=== PATIENT | male | born 1990 | race Caucasian/White ===

== ENCOUNTER 2017-11-22 12:42 | Day surgery (SDC) | payer MEDICAID ==
[2017-11-22] VITALS (12 sets, daily range): BP systolic 112–138; BP diastolic 54–86
[~2017-11-22] VITALS: Ht 195.6 cm; Wt 87.7 kg
[~2017-11-22 12:42] MED LIST: HYDR-3964 PO; ONDA4TAB12 PO; acetaminophen 325mg tablet PO ONE; cefazolin/dext.iso 2gm/50ml 50 ML IV ONE; celeCOXIB 100mg capsule PO ONE; famotidine 20mg tablet PO ONE; gabapentin 300mg capsule PO ONE; metoclopramide 5 mg/ml inj IV ONE; oxyCODONE SR 10mg (sust. release) tab PO ONE; ringers solution, lacted 1,000 ML IV SCH
[2017-11-22] MEDS ORDERED: metoclopramide 10mg tablet PO ONE (13:15)
[2017-11-22] MEDS ORDERED: BUPIVAcaine/PF 2.5 mg/ml (0.25%) 30ml vial ONE (15:50)
[2017-11-22] MEDS ORDERED: desflurane 240ml liquid inh. IH ONE (16:00)
[2017-11-22] MEDS ORDERED: ringers solution, lacted 1,000 ML IV SCH (16:01)
[2017-11-22] MEDS ORDERED: acetaminophen 1,000mg/100ml IV 100 ML IV PRN (16:05)
[2017-11-22] MEDS ORDERED: proCHLORperazine 10 MG/2 ml inj IV PRN (16:05)
[2017-11-22] MEDS ORDERED: meperidine/PF 50mg/ml syringe IV PRN ×3 (16:05)
[2017-11-22] MEDS ORDERED: morphine 2 MG/ML inj. syringe IV PRN ×2 (16:05)
[2017-11-22] MEDS ORDERED: ondansetron/PF 4mg/2ml inj IV PRN (16:05)
[2017-11-22] MEDS ORDERED: LIDOcaine 2% 5ml jelly ONE (16:11)
[2017-11-22] MEDS ORDERED: midazolam 2 mg/2 ml injection ONE (16:11)
[2017-11-22] MEDS ORDERED: fentaNYL /PF 50mcg/ml 5ml ampule ONE (16:11)
[2017-11-22] MEDS ORDERED: ondansetron/PF 4mg/2ml inj ONE (16:33)
[2017-11-22] MEDS ORDERED: dexamethasone sod phosphate 4mg/ml inj. ONE (16:33)
[2017-11-22] MEDS ORDERED: LIDOcaine 2% (20mg/ml) 5ml vial ONE (17:15)
[2017-11-22] MEDS ORDERED: propofol inj 20 ML IV ONE (17:15)
[2017-11-22] MEDS ORDERED: rocuronium 10mg/ml inj IV ONE (17:16)
== END 2017-11-22 19:40 | disposition home or self-care (01) ==
LOC: PAS 12:42
PROVIDERS: ATTEND Orthopaedic Surgery
DX: S42.022A Displaced fracture of shaft of left clavicle, initial encounter for closed fracture (principal); E11.9 Type 2 diabetes mellitus without complications; Z86.73 Personal history of transient ischemic attack (TIA), and cerebral infarction without residual deficits; Z86.74 Personal history of sudden cardiac arrest; Z72.89 Other problems related to lifestyle; Z79.01 Long term (current) use of anticoagulants; Z79.899 Other long term (current) drug therapy; Z98.890 Other specified postprocedural states; X58.XXXA Exposure to other specified factors, initial encounter; Y93.89 Activity, other specified; Y92.89 Other specified places as the place of occurrence of the external cause; Y99.8 Other external cause status
CPT/HCPCS: 23515; 73000; 76001; A4565; A6449; C1713; J0690; J1100; J2001; J2175; J2250; J2405; J2704; J3010; J3490; J7120; J8597; A7000

== ENCOUNTER 2018-01-10 11:36 | Inpatient (IN) | payer MEDICAID ==
[~2018-01-10] VITALS: Ht 195.6 cm; Wt 88.0 kg
[2018-01-10] VITALS (13 sets, daily range): BP systolic 104–129; BP diastolic 50–79
[~2018-01-10 11:36] MED LIST changes: -acetaminophen 325mg tablet PO ONE; -cefazolin/dext.iso 2gm/50ml 50 ML IV ONE; -celeCOXIB 100mg capsule PO ONE; -famotidine 20mg tablet PO ONE; -gabapentin 300mg capsule PO ONE; -metoclopramide 5 mg/ml inj IV ONE; -oxyCODONE SR 10mg (sust. release) tab PO ONE; -ringers solution, lacted 1,000 ML IV SCH
[2018-01-10] MEDS ORDERED: diphenhydrAMINE 25mg capsule PO PRN ×2 (16:25)
[2018-01-10] MEDS ORDERED: bisacodyl 10mg suppository rectal RC PRN (16:25)
[2018-01-10] MEDS ORDERED: morphine 4 MG/ML inj SYRINge IV PRN ×3 (16:25→17:45)
[2018-01-10] MEDS ORDERED: acetaminophen 325mg tablet PO PRN (16:25)
[2018-01-10] MEDS ORDERED: magnesium hydroxide 30ml (MOM) UD suspension PO PRN (16:25)
[2018-01-10] MEDS ORDERED: HYDROcodone/acetaminophen 10/325mg tab PO PRN ×2 (16:25)
[2018-01-10] MEDS ORDERED: ondansetron/PF 4mg/2ml inj IV PRN ×2 (16:25→17:45)
[2018-01-10] MEDS ORDERED: BUPIVAcaine/PF 2.5 mg/ml (0.25%) 30ml vial ONE (17:14)
[2018-01-10] MEDS ORDERED: ringers solution, lacted 1,000 ML IV SCH (17:42)
[2018-01-10] MEDS ORDERED: proCHLORperazine 10 MG/2 ml inj IV PRN (17:45)
[2018-01-10] MEDS ORDERED: meperidine/PF 50mg/ml syringe IV PRN ×2 (17:45)
[2018-01-10] MEDS ORDERED: midazolam 2 mg/2 ml injection ONE (17:51)
[2018-01-10] MEDS ORDERED: rocuronium 10mg/ml inj IV ONE (17:51)
[2018-01-10] MEDS ORDERED: propofol inj 20 ML IV ONE (17:51)
[2018-01-10] MEDS ORDERED: LIDOcaine 2% (20mg/ml) 5ml vial ONE (17:51)
[2018-01-10] MEDS ORDERED: fentaNYL/PF 50MCG/1 ML 2ML syringe ONE (17:51)
[2018-01-10] MEDS ORDERED: LIDOcaine 2% 5ml jelly ONE (17:51)
[2018-01-10] MEDS ORDERED: vancomycin 1,000mg inj ONE (18:35)
[2018-01-10] MEDS ORDERED: ondansetron/PF 4mg/2ml inj ONE (18:37)
[2018-01-10] MEDS ORDERED: dexamethasone sod phosphate 4mg/ml inj. ONE (18:37)
[2018-01-10] MEDS ORDERED: morphine 10mg/ml inj. ONE (18:45)
[2018-01-10] MEDS: ketorolac tromethamine 15mg/ml inj. IV SCH (19:31)
[2018-01-10] MEDS: meperidine/PF 50mg/ml syringe IV PRN ×2 (19:31→19:35)
[2018-01-10] MEDS ORDERED: BUPIVAcaine 0.5% inj/PF 30 ml vial ONE (19:43)
[2018-01-10] MEDS: ascorbic acid 500mg tablet PO SCH (22:46)
[2018-01-10] MEDS: gabapentin 300mg capsule PO SCH (22:46)
[2018-01-10] MEDS: sennosides 8.6mg tablet PO SCH (22:47)
[2018-01-11] MEDS: potassium cl 20mEq in 1/2 NS 1,000 ML IV SCH ×4 (00:22→16:22)
[2018-01-11] MEDS: ceFAZolin 1GM/D5W- ADD-VANTAGE 50 ML IV SCH ×3 (00:24→15:32)
[2018-01-11 02:00] VITALS: BP 111/30
[2018-01-11] MEDS: ketorolac tromethamine 15mg/ml inj. IV SCH ×3 (02:44→13:06)
[2018-01-11 05:00] VITALS: BP 107/52
[2018-01-11 06:05] LABS: BASOPHILS % (AUTO) 0.1 % (0-1); EOSINOPHILS # (AUTO) 0.1 X10'3 (0-0.9); EOSINOPHILS % (AUTO) 0.7 % (0-6); HEMOGLOBIN 12.7 g/dl (14.0-17.9); LYMPHOCYTES # (AUTO) 0.8 X10'3 (1.1-4.8); LYMPHOCYTES % (AUTO) 8.3 % (21-51); MEAN CORPUSCULAR HEMOGLOBIN 30.5 PG (27.0-31.0); MEAN CORPUSCULAR HGB CONC 34.3 % (33.0-36.5); MEAN PLATELET VOLUME 9.2 FL (7.4-10.4); MONOCYTES # (AUTO) 0.2 X10'3 (0-0.9); MONOCYTES % (AUTO) 2.5 % (2-12); NEUTROPHILS # (AUTO) 8.4 X10'3 (1.8-7.7); NEUTROPHILS % (AUTO) 88.4 % (42-75); PLATELET COUNT 263 X10'3 (140-440); RED BLOOD COUNT 4.15 X10'6 (4.70-6.10); RED CELL DISTRIBUTION WIDTH 14.4 % (11.5-14.5); WHITE BLOOD COUNT 9.5 X10'3 (4.5-11.0)
[2018-01-11 06:42] LABS: ANION GAP 11 (8-16); CHLORIDE 104 MMOL/L (99-107); POTASSIUM 4.3 MMOL/L (3.5-5.1); SODIUM 139 MMOL/L (135-145); TOTAL CARBON DIOXIDE 23.7 MMOL/L (24-32)
[2018-01-11] MEDS: gabapentin 300mg capsule PO SCH ×3 (07:04→20:55)
[2018-01-11] MEDS: multivitamins, therapeutics tablet PO SCH (07:04)
[2018-01-11] MEDS: ascorbic acid 500mg tablet PO SCH ×2 (07:04→20:55)
[2018-01-11] MEDS ORDERED: vancomycin/NS 1 GM ADD-VANTAGE 250 ML IV SCH (08:00)
[2018-01-11 10:00] VITALS: BP 105/56
[2018-01-11 10:51] LABS: ALANINE AMINOTRANSFERASE 17 U/L (12-78); ALBUMIN 3.5 G/DL (3.4-5.0); ALBUMIN/GLOBULIN RATIO 0.9 (1.1-1.5); ALKALINE PHOSPHATASE 118 IU/L (46-116); ANION GAP 9 (8-16); ASPARTATE AMINO TRANSFERASE 13 U/L (10-37); BILIRUBIN,TOTAL 0.6 MG/DL (0.1-1.0); BLOOD UREA NITROGEN 11 MG/DL (7-18); BUN/CREATININE RATIO 14.1 (5.4-32.0); CALCIUM 9.2 MG/DL (8.5-10.1); CHLORIDE 104 MMOL/L (99-107); CREATININE 0.78 MG/DL (0.60-1.10); GLUCOSE 110 MG/DL (70-104); POTASSIUM 4.5 MMOL/L (3.5-5.1); SODIUM 139 MMOL/L (135-145); TOTAL CARBON DIOXIDE 26.5 MMOL/L (24-32); TOTAL PROTEIN 7.2 G/DL (6.4-8.2); eGFR > 90 ML/MIN
[2018-01-11] MEDS: vancomycin inj 1,250 MG in normal saline 250ml IV soln 250 ML IV SCH (16:15)
[2018-01-11 18:00] VITALS: BP 112/62
[2018-01-11] MEDS: sennosides 8.6mg tablet PO SCH (20:55)
[2018-01-11] MEDS: lactobacillus rhamnosus 10,000 MMU CELLS/CAPSULE PO SCH (20:55)
[2018-01-11 22:00] VITALS: BP 125/50
[2018-01-12] MEDS: ceFAZolin 1GM/D5W- ADD-VANTAGE 50 ML IV SCH ×3 (00:09→15:09)
[2018-01-12] MEDS: potassium cl 20mEq in 1/2 NS 1,000 ML IV SCH ×2 (01:09→08:22)
[2018-01-12 05:00] VITALS: BP 109/56
[2018-01-12] MEDS: ascorbic acid 500mg tablet PO SCH ×2 (07:23→19:54)
[2018-01-12] MEDS: gabapentin 300mg capsule PO SCH ×3 (07:23→21:00)
[2018-01-12] MEDS: multivitamins, therapeutics tablet PO SCH (07:23)
[2018-01-12] MEDS: lactobacillus rhamnosus 10,000 MMU CELLS/CAPSULE PO SCH ×2 (07:24→19:54)
[2018-01-12 07:33] LABS: BASOPHILS # (AUTO) 0.1 X10'3 (0-0.2); BASOPHILS % (AUTO) 0.8 % (0-1); EOSINOPHILS # (AUTO) 0.2 X10'3 (0-0.9); HEMATOCRIT 34.7 % (42.0-52.0); HEMOGLOBIN 11.7 g/dl (14.0-17.9); LYMPHOCYTES # (AUTO) 2.1 X10'3 (1.1-4.8); LYMPHOCYTES % (AUTO) 26.3 % (21-51); MEAN CORPUSCULAR HGB CONC 33.8 % (33.0-36.5); MEAN PLATELET VOLUME 9.3 FL (7.4-10.4); MONOCYTES # (AUTO) 0.6 X10'3 (0-0.9); MONOCYTES % (AUTO) 8.3 % (2-12); NEUTROPHILS # (AUTO) 4.9 X10'3 (1.8-7.7); NEUTROPHILS % (AUTO) 62.6 % (42-75); PLATELET COUNT 209 X10'3 (140-440); RED CELL DISTRIBUTION WIDTH 14.4 % (11.5-14.5); WHITE BLOOD COUNT 7.8 X10'3 (4.5-11.0)
[2018-01-12] MEDS: vancomycin inj 1,250 MG in normal saline 250ml IV soln 250 ML IV SCH ×3 (08:34)
[2018-01-12 10:00] VITALS: BP 122/71
[2018-01-12] MEDS ORDERED: VANCOMYCIN LEVEL IV ONE (15:30)
[2018-01-12 18:00] VITALS: BP 129/82
[2018-01-12] MEDS: sennosides 8.6mg tablet PO SCH (21:00)
[2018-01-12 22:20] VITALS: BP 110/80
[2018-01-13] MEDS: ceFAZolin 1GM/D5W- ADD-VANTAGE 50 ML IV SCH ×3 (00:08→16:00)
[2018-01-13 05:37] LABS: BASOPHILS # (AUTO) 0.1 X10'3 (0-0.2); BASOPHILS % (AUTO) 1.4 % (0-1); EOSINOPHILS # (AUTO) 0.2 X10'3 (0-0.9); EOSINOPHILS % (AUTO) 2.2 % (0-6); HEMATOCRIT 34.8 % (42.0-52.0); HEMOGLOBIN 11.7 g/dl (14.0-17.9); LYMPHOCYTES # (AUTO) 2.2 X10'3 (1.1-4.8); LYMPHOCYTES % (AUTO) 27.3 % (21-51); MEAN CORPUSCULAR HGB CONC 33.8 % (33.0-36.5); MEAN CORPUSCULAR VOLUME 88.7 FL (78-98); MEAN PLATELET VOLUME 8.9 FL (7.4-10.4); MONOCYTES # (AUTO) 0.6 X10'3 (0-0.9); MONOCYTES % (AUTO) 7.6 % (2-12); NEUTROPHILS # (AUTO) 4.9 X10'3 (1.8-7.7); NEUTROPHILS % (AUTO) 61.5 % (42-75); PLATELET COUNT 213 X10'3 (140-440); RED BLOOD COUNT 3.92 X10'6 (4.70-6.10); RED CELL DISTRIBUTION WIDTH 14.6 % (11.5-14.5); WHITE BLOOD COUNT 7.9 X10'3 (4.5-11.0)
[2018-01-13 07:00] VITALS: BP 112/65
[2018-01-13] MEDS: gabapentin 300mg capsule PO SCH ×3 (08:00→20:21)
[2018-01-13] MEDS: multivitamins, therapeutics tablet PO SCH (09:13)
[2018-01-13] MEDS: ascorbic acid 500mg tablet PO SCH ×2 (09:13→20:15)
[2018-01-13] MEDS: lactobacillus rhamnosus 10,000 MMU CELLS/CAPSULE PO SCH ×2 (09:14→20:15)
[2018-01-13 10:00] VITALS: BP 129/78
[2018-01-13 18:00] VITALS: BP 134/83
[2018-01-13] MEDS: sennosides 8.6mg tablet PO SCH (20:15)
[2018-01-13 22:46] VITALS: BP 111/64
[2018-01-14] MEDS: ceFAZolin 1GM/D5W- ADD-VANTAGE 50 ML IV SCH ×4 (00:05→23:54)
[2018-01-14 06:00] VITALS: BP 104/65
[2018-01-14 06:04] LABS: ALANINE AMINOTRANSFERASE 16 U/L (12-78); ALBUMIN 3.3 G/DL (3.4-5.0); ALBUMIN/GLOBULIN RATIO 0.9 (1.1-1.5); ALKALINE PHOSPHATASE 103 IU/L (46-116); ANION GAP 8 (8-16); ASPARTATE AMINO TRANSFERASE 13 U/L (10-37); BILIRUBIN,TOTAL 0.4 MG/DL (0.1-1.0); BLOOD UREA NITROGEN 10 MG/DL (7-18); BUN/CREATININE RATIO 14.9 (5.4-32.0); CALCIUM 8.8 MG/DL (8.5-10.1); CHLORIDE 106 MMOL/L (99-107); CREATININE 0.67 MG/DL (0.60-1.10); GLUCOSE 98 MG/DL (70-104); POTASSIUM 3.6 MMOL/L (3.5-5.1); SODIUM 143 MMOL/L (135-145); TOTAL CARBON DIOXIDE 28.9 MMOL/L (24-32); TOTAL PROTEIN 6.8 G/DL (6.4-8.2); eGFR > 90 ML/MIN
[2018-01-14] MEDS: gabapentin 300mg capsule PO SCH ×3 (08:00→21:00)
[2018-01-14] MEDS: ascorbic acid 500mg tablet PO SCH ×2 (08:11→20:45)
[2018-01-14] MEDS: multivitamins, therapeutics tablet PO SCH (08:11)
[2018-01-14] MEDS: lactobacillus rhamnosus 10,000 MMU CELLS/CAPSULE PO SCH ×2 (08:12→20:45)
[2018-01-14 10:00] VITALS: BP 126/66
[2018-01-14 18:00] VITALS: BP 111/62
[2018-01-14] MEDS: sennosides 8.6mg tablet PO SCH (20:45)
[2018-01-14 23:59] VITALS: BP 118/72
[2018-01-15 05:00] VITALS: BP 109/69
[2018-01-15] MEDS: gabapentin 300mg capsule PO SCH ×2 (08:00→13:00)
[2018-01-15] MEDS: lactobacillus rhamnosus 10,000 MMU CELLS/CAPSULE PO SCH (08:15)
[2018-01-15] MEDS: multivitamins, therapeutics tablet PO SCH (08:16)
[2018-01-15] MEDS: ascorbic acid 500mg tablet PO SCH (08:17)
[2018-01-15] MEDS: ceFAZolin 1GM/D5W- ADD-VANTAGE 50 ML IV SCH (08:35)
[2018-01-15 10:00] VITALS: BP 125/88
[2018-01-15] MEDS ORDERED: CefTRIAXone 2gm/D5W 50ml 50 ML IV ONE ×2 (13:05→13:10)
== END 2018-01-15 18:10 | disposition home or self-care (01) | DRG 711 ==
LOC: ORTHO 4S 15:39
PROVIDERS: ADMIT Orthopaedic Surgery; ATTEND Orthopaedic Surgery
PROC: 0PPB04Z Removal of Internal Fixation Device from Left Clavicle, Open Approach (ICD-10-PCS; principal; 2018-01-10 17:40)
PROC: 02HV33Z Insertion of Infusion Device into Superior Vena Cava, Percutaneous Approach (ICD-10-PCS; 2018-01-12)
DX: T81.4XXA Infection following a procedure, initial encounter (principal); T81.31XA Disruption of external operation (surgical) wound, not elsewhere classified, initial encounter; D62 Acute posthemorrhagic anemia; M86.8X8 Other osteomyelitis, other site; B95.61 Methicillin susceptible Staphylococcus aureus infection as the cause of diseases classified elsewhere; Z79.82 Long term (current) use of aspirin; Z88.1 Allergy status to other antibiotic agents; Y83.4 Other reconstructive surgery as the cause of abnormal reaction of the patient, or of later complication, without mention of misadventure at the time of the procedure; Y92.89 Other specified places as the place of occurrence of the external cause
CPT/HCPCS: 36415; 36569; 76937; 80051; 80053; 85025; 85651; 86140; 87070; 87075; 87077; 87186; 97161; A4565; A6223; A6258; A7000; J0690; J0696; J1100; J1885; J2001; J2175; J2250; J2270; J2405; J2704; J3010; J3370; J3490; J7030; J7120